=== PATIENT | female | born 2000 | race Caucasian/White ===

== ENCOUNTER 2021-06-14 17:38 | Emergency (ER) | payer SELFPAY ==
[~2021-06-14] VITALS: Wt 91.6 kg
[~2021-06-14 17:38] MED LIST: ADDERALL20 MG PO; ADDERALL30 MG PO; AMOXICILLIN500 MG PO; AMOXIL250 MG/5 M PO; ATARAX25 MG PO; BACTRIM DS 8001 TA1 PO; BENTYL10 MG PO; CARAFATE1 G1 PO; CLARITIN10 MG PO; CLARITIN5 MG/5 ML PO; CLONIDINE0.1 MG PO; Catapres-Tts 10.1 MG PO; DOXYCYCLINE100 M3 PO; HYDROCODONE BIT1 T11 PO; IBUPROFEN600 MG PO; KEFLEX500 MG PO; LIDEX0.05% T; MOTRIN CHI100 MG/51 PO; MOTRIN100 MG/5 M PO; MOTRIN400 MG PO; MOTRIN800 MG PO; NAPROXEN500 MG PO; NKHM; OMEPRAZOLE20 MG PO; PHENERGAN W/DM120 ML PO; PREDNICOT20 MG PO; PREDNISONE20 MG PO; PRELONE5 MG/5 ML PO; PYRIDIUM200 MG PO; Phenergan25 MG PO; ROBITUSSIN DM 105 ML PO; RONDEC DM 480480 ML PO; TESSALON PERLE100 M1 PO; TRAMADOL HCL50 MG PO; ZITHROMAX Z PA250 MG PO; ZOFRAN ODT4 MG SL; ZOVIRAX200 MG/5 M PO; ZYRTEC-D 5 MG-11 TE1 PO; ZYRTEC10 M1 PO; Zithromax200 MG/5 M PO
[2021-06-14 17:49] VITALS: BP 134/68
== END 2021-06-14 19:57 | disposition home or self-care (01) ==
LOC: ED 17:38
DX: S10.96XA Insect bite of unspecified part of neck, initial encounter (principal); Z88.8 Allergy status to other drugs, medicaments and biological substances; Z79.899 Other long term (current) drug therapy; W57.XXXA Bitten or stung by nonvenomous insect and other nonvenomous arthropods, initial encounter; Y93.89 Activity, other specified; Y92.89 Other specified places as the place of occurrence of the external cause; Y99.8 Other external cause status